=== PATIENT | female | born 1965 | race Caucasian/White ===

== ENCOUNTER 2016-12-02 18:28 | Emergency (ER) | payer OTHER ==
[2016-12-02] MEDS ORDERED: NS 1,000 ML ONE (18:29)
[2016-12-02] MEDS ORDERED: NS 1,000 ML IV ONE ×3 (19:07→21:07)
[2016-12-02] MEDS ORDERED: SODIUM CHLORIDE 0.9% INJ ONE ×2 (19:20→20:45)
[2016-12-02] MEDS ORDERED: PHENERGAN IV ONE ×2 (19:20→20:45)
--- NOTE | 2016-12-02 19:23 | PROVIDER DOCUMENTATION ---
Addendum entered and electronically signed by Boy Crawford Scribe 12/02/16 22:34 : Progress - PLAN OF CARE/RESULTS Progress/Plan/Lab Results: Laboratory Tests 12/02/16 12/02/16 19:01 19:01 WBC 12.02 H RBC 5.04 Hgb 17.0 H Hct 50.2 H MCV 99.6 H MCH 33.7 H MCHC 33.9 RDW Std Deviation 12.9 Plt Count 282 MPV 9.1 Immature Gran % (Auto) 0.3 Neut % (Auto) 78.7 H Lymph % (Auto) 16.7 L [place] % (Auto) 3.8 Eos % (Auto) 0.3 Baso % (Auto) 0.2 Immature Gran # (Auto) 0.04 Neut # (Auto) 9.45 H Lymph # (Auto) 2.01 [place] # (Auto) 0.46 Eos # (Auto) 0.04 Baso # (Auto) 0.02 Sodium 137 Potassium 4.1 Chloride 93 L Carbon Dioxide 26 Anion Gap 19 BUN 15 Creatinine 0.7 Estimated GFR/1.73 m2 > 60 BUN/Creatinine Ratio 21 Glucose 123 H Calculated Osmolality 276 Calcium 11.3 H Total Bilirubin 0.60 AST 23 ALT 21 Alkaline Phosphatase 93 Total Protein 9.2 H Albumin 5.1 H Globulin 4.0 Albumin/Globulin Ratio 1.0 Amylase 37 Lipase 10 L Orders Category Date Time Status AMYLASE [CHEM] Stat Lab 12/02/16 19:01 Completed CBC WITH DIFF [HEME] Stat Lab 12/02/16 19:01 Completed COMPREHENSIVE METABOLIC PANEL [CHEM] Stat Lab 12/02/16 19:01 Completed LIPASE [CHEM] Stat Lab 12/02/16 19:01 Completed 0.9% Sodium Chloride Inj [Ns] 1,000 ml Med 12/02/16 18:29 Discontinued .ROUTE As Directed 0.9% Sodium Chloride Inj [Ns] 1,000 ml Med 12/02/16 19:07 Discontinued IV 999 mls/hr 0.9% Sodium Chloride Inj [Ns] 1,000 ml Med 12/02/16 21:06 Discontinued IV 999 mls/hr 0.9% Sodium Chloride Inj [Ns] 1,000 ml Med 12/02/16 21:07 Discontinued IV 999 mls/hr Diphenhydramine [Benadryl] Med 12/02/16 21:37 Discontinued 25 mg IV NOW ONE Meperidine [Demerol] Med 12/02/16 21:06 Discontinued 25 mg IV NOW ONE Promethazine [Phenergan] Med 12/02/16 20:45 Discontinued 12.5 mg IV NOW ONE Promethazine [Phenergan] Med 12/02/16 19:20 Discontinued 25 mg IV NOW ONE Sodium Chloride 0.9% Med 12/02/16 19:20 Discontinued 10 ml INJ NOW ONE Sodium Chloride 0.9% Med 12/02/16 20:45 Discontinued 10 ml INJ NOW ONE Vital Signs - 24 hr 12/02/16 12/02/16 12/02/16 18:28 21:24 21:28 Pulse Rate 74 60 66 Respiratory 18 14 20 Rate Blood Pressure 150/102 193/91 164/82 O2 Sat by Pulse 97 96 98 Oximetry Original Note: HPI-General Adult - General Chief Complaint: Nausea/Vomiting Stated Complaint: vomiting Time Seen by Provider: 12/02/16 19:18 Source: patient Allergies/Adverse Reactions: Patient Allergies Allergy/AdvReac Type Severity Reaction Status Date / Time latex Allergy RASH Verified 09/29/16 03:23 levofloxacin [From Levaquin] Allergy RASH Verified 09/29/16 03:23 neomycin [Neomycin] Allergy RASH Verified 09/29/16 03:23 Sulfa (Sulfonamide Allergy RASH Verified 09/29/16 03:23 Antibiotics) meloxicam [From Mobic] AdvReac NAUSEA Verified 09/29/16 03:23 Home Medications: Home Medication List Medication Instructions Recorded Confirmed Last Taken Type Hydrocodone/Acetaminophen [[place] 1 each PO Q4-6H PRN PRN 08/27/14 09/29/1609/14 06:00 History 10-325 Tablet] Cyclobenzaprine [Flexeril] 10 mg PO BID 03/26/15 09/29/16 09/14/16 06:00 History Esomeprazole Magnesium [Nexium] 20 mg PO DAILY 11/17/15 09/29/16 09/14/16 06:00 History Fluticasone 50 Mcg Nasal [place] 1 spray BLANE DAILY #1 bottle 11/17/15 09/29/16 06:00 Rx [Flonase] Melatonin/Pyridoxine HCl (B6) 1 each PO HS 11/17/15 09/29/16 09/14/16 06:00 History [Melatonin 5 mg Tablet] Albuterol Sulfate Inhaler 2 puff INH [id number] PRN 09/14/16 09/29/16 Unknown History [Ventolin Hfa] Alprazolam [Xanax] 0.5 mg PO BID PRN 09/14/16 09/29/16 Unknown History Fluticasone/[place] 250/50 INH 1 puff INH RTBID 09/14/16 09/29/16 Unknown History [Advair 250/50 Diskus] Albuterol 2.5MG/Ipratrop 0.5MG 3 ml INH RTQ4H #0 neb 09/19/16 09/29/16 Unknown Rx [Duoneb (A & A)] Azithromycin [Zithromax] 500 mg PO DAILY #3 tablet 09/19/16 09/29/16 Unknown Rx CefDINIR [Omnicef] 300 mg PO BID #10 capsule 09/19/16 09/29/16 Unknown Rx - History of Present Illness -Gen Adult Nature of Presenting Problems: 51 YOWF PRESENTS TO ED WITH C/O PT STATES SHE WOKE UP THIS MORNING WITH N/V. PT STATES SHE HAS NOT BEEN ABLE TO KEEP ANYTHING DOWN ALL DAY. Location of Pain/Injury: reports: abdomen Pain Radiation: reports: no radiation Quality of Pain: reports: aching Severity: reports: mild Onset/Duration: reports: other (17 HOURS) Timing: reports: still present Context/Activities at Onset: reports: light activity Modifying Factors: improves with: nothing Associated Symptoms: reports: anxiety, nausea, vomiting Similar Symptoms Previously?: No Recently seen or treated by another doctor?: No Review of Systems - Adult - REVIEW OF SYSTEMS - ADULT Constitutional: denies: chills, fever Eyes: reports: no symptoms reported Ears, Nose, Mouth & Throat: reports: no symptoms reported Cardiovascular: denies: chest pain, palpitations, syncope Respiratory: denies: cough, shortness of breath, wheezing Gastrointestinal: reports: nausea, vomiting. denies: abdominal pain, diarrhea Genitourinary: reports: no symptoms reported Musculoskeletal: denies: back pain, neck pain Integumentary: reports: no symptoms reported Neurological: denies: dizziness/vertigo, headache/migraines, syncope Psychiatric: reports: no symptoms reported Endocrine: reports: no symptoms reported Hematologic/Lymphatic: reports: no symptoms reported Allergic/Immunologic: reports: no symptoms reported All Other Systems: Reviewed and Negative Past History - Adult - PAST MEDICAL HISTORY-ADULT Review of Records: reports: Nursing Assessment Review, Medications Reviewed Gastrointestinal: reports: GERD Obstetrical/Gynecological: reports: denies history Genitourinary: reports: other (Interstitial cystitis) Musculoskeletal: reports: denies history Neurological: reports: TIA Psychiatric: reports: anxiety Endocrine/Immune: reports: denies history Other Conditions: reports: denies history - PRIOR SURGERIES/PROCEDURES Surgical/Procedure History: reports: cholecystectomy, hysterectomy, other ( breast reduction and bladder tac) - PRIOR HOSPITALIZATIONS Prior Hospitalizations: reports: for other non-related - IMMUNIZATION STATUS Childhood Immunizations: See Nurse Assessment Flu Vaccine: See Nurse Assessment - FAMILY HISTORY Family History: reviewed, not pertinent - SOCIAL HISTORY Smoking: cigarettes, less than 1 pack/day Provider spent 3-5 mins advising pt. on dangers of tobacco.: Discussed manners to quit use, and f/u contacts for add'l counseling. Substance Use: alcohol Alcohol Use Frequency: occasionally Number of drinks per typical drinking period:: 3-4 drinks Living Situation: alone Physical Exam-General - CONSTITUTIONAL General Appearance: alert, mild distress - EYES Eyes: PERRL/EOMI, pink conjunctivae - HEAD, EARS, NOSE, MOUTH & THROAT HENMT: normocephalic/atraumatic, moist mucous membranes - NECK Neck: non-tender, full range of motion, supple - RESPIRATORY Respiratory: chest non-tender, lungs clear, normal breath sounds - CARDIOVASCULAR Cardiovascular: normal peripheral pulses, regular rate, rhythm - GASTROINTESTINAL (ABDOMEN) Abdominal Exam: normal bowel sounds, non tender, soft - LYMPHATIC Lymphatic: no adenopathy - MUSCULOSKELETAL Back Exam: normal inspection, no CVA tenderness, no vertebral tenderness Extremity: normal range of motion, non-tender - SKIN Integumentary: normal color, normal turgor, warm/dry - NEUROLOGIC Neurologic: grossly normal - PSYCHIATRIC Psych/Mental Status: oriented x 3 Departure - Departure Time of Disposition Order: 22:18 DIAGNOSIS: Gastroenteritis Disposition: HOME 01 Certified Medical Emergency: Emergent Condition: Stable Additional Instructions: ED Follow Up Instructions: You have been treated by a care provider in the Emergency Department. These instructions are being provided to you so you can have an understanding of how to care for yourself upon discharge. Upon discharge from the Emergency Department, you are responsible for making arrangements for follow-up care by a physician of your choice. Take all prescribed medications as directed. Return to the Emergency Department immediately for any new or worsening symptoms. You may call the Physician Referral phone number at [phone] to obtain a list of Physicians who are taking new patients. Attestation - Scribe Verification/Attestation Scribe:: Boy Crawford Acting as Scribe for:: Michael Loyd Scribe documention review:: This chart was documented by a scribe and accurately reflects the service the provider performed and the decisions made by the provider.
[2016-12-02 20:07] LABS: MANUAL DIFF NEEDED? NO
[2016-12-02 20:12] LABS: BASO% 0.2 % (0.0-0.8); EOS# 0.04 X1000 (0.0-0.7); EOS% 0.3 % (0.0-10.0); HEMATOCRIT 50.2 % (37.0-47.0); IMM GRAN# 0.04 X1000 (0.0-0.04); IMM GRAN% 0.3 % (0.0-0.5); LYMPH# 2.01 X1000 (1.2-3.4); LYMPH% 16.7 % (20.5-51.1); MCH 33.7 PG (27-31); MCHC 33.9 g/dL (33-37); MCV 99.6 FL (81-99); MONO# 0.46 X1000 (0.11-0.59); MONO% 3.8 % (1.7-9.3); MPV 9.1 FL (7.4-10.4); NEUT% 78.7 % (42.2-75.2); PLT 282 X1000 (130-400); RBC 5.04 XMIL (4.2-5.4)
[2016-12-02 20:38] LABS: AGAP 19; ALBUMIN 5.1 g/dL (3.5-5.0); ALKALINE PHOSPHATASE 93 U/L (32-104); AMYLASE 37 U/L (20-200); BUN 15 mg/dL (8-22); CALCIUM 11.3 mg/dL (8.8-10.2); CHLORIDE 93 mmol/L (98-107); COSMO 276; GOT 23 U/L (10-30); GPT 21 U/L (10-36); LIPASE 10 U/L (13-60); POTASSIUM 4.1 mmol/L (3.5-5.1); SODIUM 137 mmol/L (136-145); TCO2 26 mmol/L (25-35); TOTAL PROTEIN 9.2 g/dL (6.3-8.3)
[2016-12-02] MEDS ORDERED: DEMEROL IV ONE (21:06)
[2016-12-02] MEDS ORDERED: BENADRYL IV ONE (21:37)
[2016-12-02 22:41] VITALS: BP 153/80
== END 2016-12-02 22:45 | disposition home or self-care (01) ==
LOC: P.ED 18:28
DX: K52.9 Noninfective gastroenteritis and colitis, unspecified (principal); R11.2 Nausea with vomiting, unspecified; R10.9 Unspecified abdominal pain; K21.9 Gastro-esophageal reflux disease without esophagitis; F41.9 Anxiety disorder, unspecified; F17.210 Nicotine dependence, cigarettes, uncomplicated; Z79.899 Other long term (current) drug therapy; Z71.6 Tobacco abuse counseling; Z86.73 Personal history of transient ischemic attack (TIA), and cerebral infarction without residual deficits
CPT/HCPCS: 80053; 82150; 83690; 85025; 96361; 96374; 96375; 96376; J1200; J2175; J2550; J7030